=== PATIENT | female | born 1995 | race Hispanic/Latino ===

== ENCOUNTER 2018-10-10 03:27 | Emergency (ER) | payer OTHER | END 2018-10-10 03:55 | LOC: EDH 03:27 | DX: Z02.83 Encounter for blood-alcohol and blood-drug test (principal) ==

== ENCOUNTER 2021-04-17 16:46 | Observation (INO) | payer MEDICAID, OTHER ==
[~2021-04-17] VITALS: Ht 154.9 cm; Wt 68.5 kg
[2021-04-17 17:31] VITALS: BP 92/52
[2021-04-17 17:40] LABS: APPEARANCE,URINE Cloudy (CLEAR); BILIRUBIN,URINE Negative (NEGATIVE); COLOR,URINE Yellow (YELLOW); GLUCOSE, URINE (UA) Negative (NEGATIVE); KETONES,URINE Negative (NEGATIVE); LEUKOCYTE ESTERASE ,URINE Large (NEGATIVE); NITRATE,URINE Negative (NEGATIVE); OCCULT BLOOD,URINE Moderate (NEGATIVE); PH,URINE 6.5 (5.0-8.0); PROTEIN,URINE Negative (NEGATIVE)
[2021-04-17 18:21] LABS: BACTERIA,URINE Few /HPF (None Seen); SQUAMOUS EPITHELIAL CELL,UR Few /HPF (0-2)
[2021-04-17] MEDS: LACTATED RINGERS 1000ML 1,000 ML IV SCH ×2 (18:36→18:58)
[2021-04-20] MEDS ORDERED: DOCU-116 PO (16:00)
[2021-04-20] MEDS ORDERED: IBUP-2077 PO (16:01)
[2021-04-20] MEDS ORDERED: ACET1TAB25 PO (16:02)
== END 2021-04-17 20:08 | disposition home or self-care (01) ==
LOC: LDH 16:46
PROVIDERS: ADMIT Obstetrics & Gynecology; ATTEND Obstetrics & Gynecology
DX: O36.8130 Decreased fetal movements, third trimester, not applicable or unspecified (principal); Z3A.39 39 weeks gestation of pregnancy
CPT/HCPCS: 59025; 76805; 76819; 81001; 87088; 96360; 96361; G0378 ×2; G0379

== ENCOUNTER 2021-04-18 18:01 | Inpatient (IN) | payer OTHER ==
[~2021-04-18] VITALS: Ht 154.9 cm; Wt 69.9 kg
[2021-04-18 18:55] LABS: APPEARANCE,URINE CLOUDY (CLEAR); BILIRUBIN,URINE SMALL (NEGATIVE); COLOR,URINE YELLOW (YELLOW); GLUCOSE, URINE (UA) NEGATIVE (NEGATIVE); KETONES,URINE 5 mg/dL (NEGATIVE); LEUKOCYTE ESTERASE ,URINE LARGE (NEGATIVE); NITRATE,URINE NEGATIVE (NEGATIVE); OCCULT BLOOD,URINE NEGATIVE (NEGATIVE); PH,URINE 6.5 (5.0-8.0); PROTEIN,URINE TRACE mg/dL (NEGATIVE)
[2021-04-18 19:09] LABS: BACTERIA,URINE Moderate /HPF (None Seen); MUCUS,URINE Rare LPF (None Seen); SQUAMOUS EPITHELIAL CELL,UR Moderate /HPF (0-2)
[2021-04-18 20:13] LABS: HEMATOCRIT 30.4 % (36-48); MEAN CORPUSCULAR HEMOGLOBIN 28.9 pg (27.0-33.0); MEAN CORPUSCULAR HGB CONC 33.2 g/dL (32.0-36.0); MEAN CORPUSCULAR VOLUME 87.1 fL (79-99); RED BLOOD CELL COUNT(AUTO) 3.49 MIL/uL (4.00-5.50); RED CELL DISTRIBUTION WIDTH 14.5 % (11.0-15.5); WHITE BLOOD COUNT (AUTO) 8.5 K/uL (4.8-10.8)
[2021-04-18] MEDS ORDERED: MISOPROSTOL 25 MCG TABLET ONE (20:25)
[2021-04-18] MEDS: LACTATED RINGERS 1000ML 1,000 ML IV PRN (20:29)
[2021-04-18] MEDS ORDERED: MISOPROSTOL 100 MCG TABLET VG SCH (20:30)
[2021-04-18] MEDS ORDERED: MISOPROSTOL 25 MCG TABLET VG SCH (21:00)
[2021-04-18 21:49] VITALS: BP 124/85
[2021-04-18] MEDS ORDERED: AMPICILLIN 2GM+NS 100ML 100 ML IV SCH (23:00)
[2021-04-19] MEDS: AMPICILLIN 1GM+NS 50ML 50 ML IV SCH ×3 (04:33→12:56)
[2021-04-19] MEDS: LACTATED RINGERS 1000ML 1,000 ML IV PRN ×2 (04:33→07:15)
[2021-04-19] MEDS ORDERED: LACTATED RINGERS 500 ML 500 ML IV PRN (07:00)
[2021-04-19] MEDS ORDERED: ROPIVACAINE 0.2% 100ML VIAL 100 ML EP PRN (07:00)
[2021-04-19] MEDS ORDERED: EPHEDRINE SULFATE 50 MG/ML AMPULE IVP PRN (07:00)
[2021-04-19] MEDS ORDERED: NALOXONE HCL 0.4 MG/1 ML ML IV PRN (07:00)
[2021-04-19] MEDS ORDERED: OXYTOCIN-LR 20 UNITS/1000 ML 1,000 ML IV SCH ×2 (07:30→16:30)
[2021-04-19] MEDS: LACTATED RINGERS 1000ML 1,000 ML IV SCH (08:39)
[2021-04-19] MEDS ORDERED: ONDANSETRON 4MG INJ ONE (11:38)
[2021-04-19] MEDS ORDERED: METHYLERGONOVINE MALEATE 0.2 MG/1 ML ML ONE (15:26)
[2021-04-19] MEDS ORDERED: WITCH HAZEL 1 PAD TP PRN (16:30)
[2021-04-19] MEDS ORDERED: ACETAMINOPHEN 325 MG TAB PO PRN (16:30)
[2021-04-19] MEDS ORDERED: LANOLIN 30GM OINTMENT TP PRN (16:30)
[2021-04-19] MEDS ORDERED: DIPH,PERTUSS(ACELL),TET VAC/PF 0.5 ML VIAL IM PRN (16:30)
[2021-04-19] MEDS ORDERED: BENZOCAINE/LANOLIN/ALOE VERA 60 ML AEROSOL TP PRN (16:30)
[2021-04-19] MEDS ORDERED: MEASLES/MUMPS/RUBELLA VACCINE, LIVE 0.5 ML/VIAL SQ PRN (16:30)
[2021-04-19] MEDS ORDERED: ACETAMINOPHEN WITH CODEINE 1 TAB TAB PO PRN (16:30)
[2021-04-19] MEDS: IBUPROFEN 600 MG TABLET PO PRN (19:37)
[2021-04-19 20:30] VITALS: BP 120/71
[2021-04-19] MEDS: DOCUSATE SODIUM 100 MG CAP PO SCH (21:10)
[2021-04-19 23:15] VITALS: BP 125/86
[2021-04-20] MEDS: LACTATED RINGERS 1000ML 1,000 ML IV SCH (02:30)
[2021-04-20 02:58] VITALS: BP 104/61
[2021-04-20] MEDS: IBUPROFEN 600 MG TABLET PO PRN ×2 (03:27→09:10)
[2021-04-20 06:42] LABS: HEMATOCRIT 26.7 % (36-48); MEAN CORPUSCULAR HGB CONC 33.7 g/dL (32.0-36.0); MEAN CORPUSCULAR VOLUME 86.1 fL (79-99); RED BLOOD CELL COUNT(AUTO) 3.1 MIL/uL (4.00-5.50); RED CELL DISTRIBUTION WIDTH 14.5 % (11.0-15.5); WHITE BLOOD COUNT (AUTO) 13.2 K/uL (4.8-10.8)
[2021-04-20 07:16] VITALS: BP 127/82
[2021-04-20 07:40] LABS: HEPATITIS Bs ANTIGEN SCREEN P Negative (Negative)
[2021-04-20] MEDS: DOCUSATE SODIUM 100 MG CAP PO SCH (09:08)
[2021-04-20 11:34] VITALS: BP 94/54
[2021-04-20] MEDS ORDERED: DOCU-116 PO ×2 (16:00)
[2021-04-20] MEDS ORDERED: IBUP-2077 PO ×2 (16:01)
[2021-04-20] MEDS ORDERED: ACET1TAB25 PO ×2 (16:02)
== END 2021-04-20 15:20 | disposition home or self-care (01) | DRG 807 ==
LOC: EDH 18:01 → LDH 18:10 → WSH 04-19 20:25
PROVIDERS: ADMIT Obstetrics & Gynecology; ATTEND Obstetrics & Gynecology
PROC: 10E0XZZ Delivery of Products of Conception, External Approach (ICD-10-PCS; principal; 2021-04-19)
PROC: 0KQM0ZZ Repair Perineum Muscle, Open Approach (ICD-10-PCS; 2021-04-19)
PROC: 3E033VJ Introduction of Other Hormone into Peripheral Vein, Percutaneous Approach (ICD-10-PCS; 2021-04-19)
PROC: 3E0P7GC Introduction of Other Therapeutic Substance into Female Reproductive, Via Natural or Artificial Opening (ICD-10-PCS; 2021-04-19)
PROC: 10907ZC Drainage of Amniotic Fluid, Therapeutic from Products of Conception, Via Natural or Artificial Opening (ICD-10-PCS; 2021-04-19)
PROC: 3E0R3BZ Introduction of Anesthetic Agent into Spinal Canal, Percutaneous Approach (ICD-10-PCS; 2021-04-19)
PROC: 00HU33Z Insertion of Infusion Device into Spinal Canal, Percutaneous Approach (ICD-10-PCS; 2021-04-19)
DX: O70.1 Second degree perineal laceration during delivery (principal); Z37.0 Single live birth; Z3A.39 39 weeks gestation of pregnancy
CPT/HCPCS: 36415; 81001; 85027; 86592; 86850; 86900; 86901; 87340; A4314; A4351; G0378; J0290; J2210; J2405; J2590; J2795; J7120

== ENCOUNTER 2022-12-06 11:26 | Emergency (ER) | payer MEDICAID, OTHER ==
[~2022-12-06] VITALS: Ht 160 cm; Wt 63.5 kg
[~2022-12-06 11:26] MED LIST: ACET-2079 PO; DOCU-116 PO; IBUP-2077 PO
[2022-12-06 11:47] LABS: BILIRUBIN,URINE NEGATIVE (NEGATIVE); COLOR,URINE LIGHT-YELLOW (YELLOW); GLUCOSE, URINE (UA) NEGATIVE (NEGATIVE); KETONES,URINE NEGATIVE (NEGATIVE); LEUKOCYTE ESTERASE ,URINE 500 Leu/uL (NEGATIVE); NITRATE,URINE NEGATIVE (NEGATIVE); OCCULT BLOOD,URINE NEGATIVE (NEGATIVE); PROTEIN,URINE NEGATIVE (NEGATIVE); UROBILINOGEN,URINE 0.2 mg/dL (0.2-1.0)
[2022-12-06 11:52] LABS: APPEARANCE,URINE HAZY (CLEAR)
[2022-12-06 11:55] LABS: BACTERIA,URINE RARE /HPF (None Seen); MUCUS,URINE RARE LPF (None Seen); RBC,URINE 0-1 /HPF (0-1); SQUAMOUS EPITHELIAL CELL,UR MANY /HPF (0-2); WBC,URINE 51-100 /HPF (0-1)
[2022-12-06 11:56] LABS: HCG,QUALITATIVE URINE NEGATIVE (NEGATIVE)
[2022-12-06 11:56] LABS: BASOPHILS % (AUTO) 0.2 % (0.0-5.0); EOSINOPHILS % (AUTO) 1.6 % (0.0-8.0); LYMPHOCYTES % (AUTO) 31.5 % (21.0-51.0); MEAN CORPUSCULAR HEMOGLOBIN 26.5 pg (27.0-33.0); MEAN CORPUSCULAR HGB CONC 32.2 g/dL (32.0-36.0); MEAN CORPUSCULAR VOLUME 82.2 fL (79-99); MONOCYTES % (AUTO) 7.2 % (3.0-13.0); NEUTROPHILS % (AUTO) 59.3 % (40.0-77.0); PLATELET COUNT (AUTO) 329 K/uL (130-400); RED BLOOD CELL COUNT(AUTO) 4.38 MIL/uL (4.00-5.50); RED CELL DISTRIBUTION WIDTH 15.3 % (11.0-15.5); WHITE BLOOD COUNT (AUTO) 8.9 K/uL (4.8-10.8)
[2022-12-06 12:09] LABS: AMPHET/METH SCREEN,URINE NEGATIVE (NEGATIVE); BARBITURATE SCREEN, URINE NEGATIVE (NEGATIVE); BENZODIAZEPINES SCREEN,URINE POSITIVE (NEGATIVE); CANNABINOID SCREEN,URINE NEGATIVE (NEGATIVE); COCAINE SCREEN,URINE NEGATIVE (NEGATIVE); OPIATE SCREEN,URINE NEGATIVE (NEGATIVE); PHENCYCLIDINE SCREEN,URINE NEGATIVE (NEGATIVE)
[2022-12-06 12:15] LABS: CARBON DIOXIDE 27 mmol/L (21-32); CHLORIDE 100 mmol/L (101-111); CREATININE 0.7 mg/dL (0.5-1.5); GLOMERULAR FILTR. RATE CALC 121 mL/min (>90); GLUCOSE,RANDOM 98 mg/dL (70-105); POTASSIUM 3.7 mmol/L (3.5-5.1); SODIUM SERUM 136 mmol/L (136-145); UREA NITROGEN, BLOOD 9 mg/dL (7-18)
[2022-12-06 12:19] LABS: ALANINE AMINOTRANSFERASE 15 U/L (12-78); ALBUMIN 3.9 g/dL (3.5-5.0); ASPARTATE AMINOTRANSFERASE 13 U/L (10-37); TOTAL PROTEIN, SERUM 7.9 g/dL (6.0-8.3)
[2022-12-06 12:41] LABS: ACETAMINOPHEN < 1 mcg/mL (10-30); SALICYLATE < 2.8 mg/dL (2.8-20.0)
[2022-12-06 14:30] VITALS: BP 118/74
[2022-12-06] MEDS ORDERED: MACR100 PO (17:11)
[2022-12-06] MEDS ORDERED: SULF1TAB42 PO (17:11)
[2022-12-06] MEDS ORDERED: PHEN-847 PO (17:11)
[2022-12-06] MEDS ORDERED: PHENAZOPYRIDINE HCL 200 MG TABLET PO ONE (17:30)
[2022-12-06] MEDS ORDERED: CEFTRIAXONE 1G VIAL IVPB ONE (17:30)
== END 2022-12-06 18:30 | disposition home or self-care (01) ==
LOC: EDH 11:26
DX: R06.02 Shortness of breath (principal); F43.21 Adjustment disorder with depressed mood; N30.00 Acute cystitis without hematuria; Z20.822 Contact with and (suspected) exposure to COVID-19; Z79.899 Other long term (current) drug therapy
CPT/HCPCS: 99284; 96365; 87635; 80053; 80305; 85025; 87077; 87088; 87186; 87797; 87486; 81025; 36415; 93005; 81001; C9803; J0696; G0481

== ENCOUNTER 2024-06-17 19:14 | Emergency (ER) | payer BC ==
[~2024-06-17] VITALS: Ht 157.5 cm; Wt 55.8 kg
[~2024-06-17 19:14] MED LIST changes: +MACR100 PO; +PHEN-847 PO
--- NOTE | 2024-06-17 19:18 | NUR ---
UA CUP PROVIDED
--- NOTE | 2024-06-17 19:34 | ERN ---
ED Note History of Present Illness Stated Complaint: BACK AND PELVIC PAIN Chief Complaint: Multiple Complaints Time Seen by MD: 19:18 Dictation: PATIENT IS A 28-YEAR-OLD FEMALE HERE WITH TWO COMPLAINTS 1ST COMPLAINT IS LOW BACK PAIN THAT DOES NOT RADIATE SHE HAS HAD FOR FIVE DAYS. NO FEVER NO CHILLS NO NAUSEA VOMITING. DENIES ANY HISTORY OF PRIOR INJURIES OR SURGERIES. SECOND COMPLAINT IS SHE IS HAVING PELVIC PAIN SHE HAS HAD FOR 1-1/2 MONTHS. SHE DENIES VAGINAL BLEEDING NO NAUSEA VOMITING NO FEVER NO CHILLS. SHE IS A PATIENT OF DR. ROCÍO Almeida HOWEVER HAS NOT CALLED HER TO BE SEEN. Allergies: Coded Allergies: No Known Drug Allergies (Unverified Allergy, Unknown, 04/17/21) Home Meds Active Scripts Phenazopyridine HCl (Pyridium) 200 Mg Tab, 200 MG PO TIDPC, #10 TAB 0 Refills TAKE WITH FOOD TO PREVENT STOMACH UPSET. Prov:DANTE GONZALEZ MD 12/06/22 Nitrofurantoin/Nitrofuran Mac (Macrobid) 100 Mg Cap, 1 CAP PO BID for 7 Days, #14 CAP 0 Refills Prov:DANTE GONZALEZ MD 12/06/22 Reported Medications Acetaminophen with Codeine (Acetaminophen-Cod #3 Tablet) 1 Each Tablet, 1 EACH PO Q4H PRN for PAIN LEVEL 7 TO 10, #30 TAB 04/20/21 Ibuprofen (Ibuprofen 800 mg Tab) 800 Mg Tab, 800 MG PO Q8H PRN for PAIN, #60 TAB 04/20/21 Docusate Sodium (Colace) 100 Mg Capsule, 100 MG PO BID, #60 CAP 04/20/21 Past Medical History Past Medical History: No Pertinent History Surgical History: None Social History: Drugs, ETOH, Lives with family LMP: Jun 16, 2024 RN Note Reviewed/Agreed w/PFSH: Yes Review of System Dictation CONSTITUTIONAL: NEGATIVE EXCEPT FOR HPI HEAD/FACE: NEGATIVE EXCEPT FOR HPI EENT: NEGATIVE EXCEPT FOR HPI RESPIRATORY: NEGATIVE EXCEPT FOR HPI GASTROINTESTINAL/ABDOMINAL: NEGATIVE EXCEPT FOR HPI GENITOURINARY: NEGATIVE EXCEPT FOR HPI PELVIC PAIN FOR 1-1/2 MONTHS MUSCULOSKELETAL: NEGATIVE EXCEPT FOR HPI LOW BACK PAIN INTEGUMENTARY: NEGATIVE EXCEPT FOR HPI NEUROLOGICAL/PSYCH: NEGATIVE EXCEPT FOR HPI HEMATOLOGIC/LYMPHATIC: NEGATIVE EXCEPT FOR HPI ALL SYSTEMS NEGATIVE, EXCEPT NOTED ABOVE. 13 POINT REVIEW OF SYSTEMS ASSESSED AND ALL NEGATIVE EXCEPT FOR ABOVE. Initial Vital Sign VS Vital Signs Date Time Temp Pulse Resp B/P (MAP) Pulse Ox O2 Delivery O2 Flow Rate FiO2 06/17/24 19:15 97.0 102 20 124/87 100 Room Air 06/17/24 20:08 0 21 Physical Exam Dictation VITAL SIGNS REVIEWED GENERAL APPEARANCE: ALERT, ORIENTED X 3, NO ACUTE DISTRESS, WELL DEVELOPED, NOURISHED. 06/10 PAIN HEAD AND FACE: NON-TRAUMATIC. EYES: PERRL, PINK CONJUNCTIVAS, EYELID NO TRAUMA, ANTERIOR CHAMBER WITH ARCUS SENILIS. EARS: PINNAS INTACT AND NO SIGNS OF TRAUMA OR ERYTHEMA EAR CANALS CLEAR AND NO DISCHARGE TM NO ERYTHEMA NOSE: NO DISCHARGE, NO BLEEDING. OROPHARYNX: MOUTH NORMAL, TONGUE PINK, PHARYNX CLEAR,NO ERYTHEMA, TONSILS NO EXUDATES, NO ABSCESSES NOTED, MUCOUS MEMBRANE MOIST NECK: SUPPLE, NON-TENDER, NO THYROMEGALY, NO MASSES, NO JVD, NO BRUITS BREAST:DEFERRED CHEST:NO TENDERNESS, NO CREPITUS, NO PARADOXICAL MOVEMENT, NO RETRACTIONS LUNGS:CLEAR, WELL-VENTILATED, SYMMETRIC, NO RALES, NO WHEEZING, NO RHONCHI, NO STRIDOR, GOOD BREATH SOUNDS BILATERALLY HEART: REGULAR RATE, REGULAR RHYTHM, NO MURMUR, NO GALLOPS VASCULAR: NO PERIPHERAL EDEMA, ABDOMEN: SOFT, POSITIVE BOWEL SOUNDS, NONDISTENDED, NO GUARDING, NONTENDER, NO REBOUND, NO MASSES NO HEPATOMEGALY, NO SPLENOMEGALY, NO MERCEDES'S SIGN, NO HERNIAS. RECTAL: DEFERRED GENITAL: DEFERRED NEUROLOGICAL: NORMAL SPEECH, MOTOR FUNCTION INTACT, SENSORY FUNCTION INTACT MUSCULOSKELETAL: NECK NONTENDER, FULL RANGE OF MOTION, BACK NONTENDER, FULL RANGE OF MOTION, EXTREMITIES: NONTENDER, FULL RANGE OF MOTION SKIN: COLOR PINK, DRY, NO TURGOR, NO RASH, NO LACERATIONS, NO ABRASIONS, NO CONTUSIONS. LYMPHATIC: DEFERRED Results (Laboratory/Radiology) Laboratory/Radiology Laboratory Tests Test 06/17/24 20:25 06/17/24 21:05 White Blood Count 7.8 K/uL (4.8-10.8) Red Blood Count 4.20 MIL/uL (4.00-5.50) Hemoglobin 11.8 g/dL (12.0-16.0) L Hematocrit 35.4 % (36-48) L Mean Corpuscular Volume 84.3 fL (79-99) Mean Corpuscular Hemoglobin 28.1 pg (27.0-33.0) Mean Corpuscular Hemoglobin Concent 33.3 g/dL (32.0-36.0) Red Cell Distribution Width 14.0 % (11.0-15.5) Platelet Count 381 K/uL (130-400) Mean Platelet Volume 9.6 fL (7.5-10.5) Immature Granulocyte % (Auto) 0.1 % (0-1) Neutrophils (%) (Auto) 63.7 % (40.0-77.0) Lymphocytes (%) (Auto) 28.9 % (21.0-51.0) Monocytes (%) (Auto) 6.5 % (3.0-13.0) Eosinophils (%) (Auto) 0.5 % (0.0-8.0) Basophils (%) (Auto) 0.3 % (0.0-5.0) Neutrophils # (Auto) 4.9 K/uL (1.8-7.7) Lymphocytes # (Auto) 2.2 K/uL (1.0-4.8) Monocytes # (Auto) 0.5 K/uL (0.1-1.0) Eosinophils # (Auto) 0.04 K/uL (0.00-0.70) Basophils # (Auto) 0.02 K/uL (0.00-0.20) Absolute Immature Granulocyte (auto 0.01 K/uL (0-1) Nucleated Red Blood Cells 0.0 % (0.0-0.19) Sodium Level 140 mmol/L (136-145) Potassium Level 4.1 mmol/L (3.5-5.1) Chloride Level 104 mmol/L (101-111) Carbon Dioxide Level 30 mmol/L (21-32) Blood Urea Nitrogen 7 mg/dL (7-18) Creatinine 0.5 mg/dL (0.5-1.0) Glomerular Filtration Rate Calc 130 mL/min (>90) Random Glucose 97 mg/dL (70-105) Total Calcium 9.2 mg/dL (8.5-10.1) Serum Test, Qualitative NEGATIVE (NEGATIVE) Urine Color COLORLESS (YELLOW) Urine Appearance CLOUDY (CLEAR) H Urine pH 5.5 (5.0-8.0) Urine Specific [place] 1.010 (1.001-1.031) Urine Protein NEGATIVE mg/dL (NEGATIVE) Urine Glucose (UA) NEGATIVE mg/dL (NEGATIVE) Urine Ketones NEGATIVE mg/dL (NEGATIVE) Urine Occult Blood LARGE (NEGATIVE) H Urine Nitrate NEGATIVE (NEGATIVE) Urine Bilirubin NEGATIVE mg/dL (NEGATIVE) Urine Urobilinogen 0.2 mg/dL (0.2-1.0) Urine Leukocyte Esterase NEGATIVE Akira/uL Labs Reviewed?: Yes ED Course ED Course Orders Procedure Category Date Status Time Testing, LAB 06/17/24 Complete Serum Hcg 19:18 Urinalysis Profile LAB 06/17/24 In Process 19:18 Cbc With Differential LAB 06/17/24 Complete 19:18 Basic Metabolic Panel LAB 06/17/24 Complete 19:18 Acetaminophen 500mg PHA 06/17/24 Complete Tab (Tylenol 500mg T 20:00 Current Medications Medications (Trade) Dose Ordered Sig/Ju Route PRN Reason Start Time Stop Time Status Last Admin Dose Admin Acetaminophen (TYLenol 500MG TAB) 1,000 mg ONCE ONCE PO 06/17/24 20:00 06/17/24 20:01 DC 06/17/24 21:29 Vital Signs Date Time Temp Pulse Resp B/P (MAP) Pulse Ox O2 Delivery O2 Flow Rate FiO2 06/17/24 20:08 97.0 102 20 124/87 100 Room Air* 0 21 06/17/24 19:15 97.0 102 20 124/87 100 Room Air 2135/patient will be discharged home with all labs negative no imaging indicated this time. We will refer her to Dr. Rocío almeida for her chronic pelvic pain. No and no infection Medical Decision Making MDM Medical discharge making based on labs urinalysis. All labs negative Patient has a hematuria only on urine No She will be given pain management and told to follow up with Dr. Rocío almeida, her senior ui designer in the next 2-3 days DX & DISP Disposition: Discharge Departure Impression: Primary Impression: Chronic pelvic pain in female Additional Impressions: Acute low back pain, Hematuria Condition: Stable Scripts Ibuprofen (Ibuprofen 800 mg Tab) 800 Mg Tab 800 MG PO Q8H PRN for fever or pain, #30 TAB 0 Refills Prov: RALF VILLARREAL FEATHEREDGE MACHINE OPERATOR 06/17/24 Additional Instructions: Follow-up with primary care provider in 1 to 2 days. Take medications as directed here in the emergency room. Okay to continue home medications unless otherwise discussed during your visit in the emergency room today. Return to your nearest emergency room if symptoms worsen or if there is no improvement. Call 911 if you need immediate assistance. Take Tylenol or Motrin [id number] as needed and if no contraindications are present. Increase oral hydration. A wound culture or urine culture was ordered here in the emergency room department please follow-up with primary care provider and advise them to get repeat ports from our facility. If you had any Rudolph wrap/splints that were applied here, please do not remove them until you see your primary care or specialty. Take ibuprofen as needed for pain. Follow up with your senior ui designer doctor in the next 2-3 days for your chronic pelvic pain. Referrals: IRIS ALFORD MD (PCP) Time of Disposition: 21:41 I have reviewed the case, and I agree with, Diagnosis and Plan RALF VILLARREAL NP Jun 17, 2024 19:34
--- NOTE | 2024-06-17 19:47 | NUR ---
PT HAS NOT COLLECTED A URINE AT THIS TIME
[2024-06-17 20:08] VITALS: BP 124/87; PULSE 102; RESP 20; TEMP 97; O2SAT 100
[2024-06-17 20:37] LABS: BASOPHILS # (AUTO) 0.02 K/uL (0.00-0.20); BASOPHILS % (AUTO) 0.3 % (0.0-5.0); EOSINOPHILS # (AUTO) 0.04 K/uL (0.00-0.70); EOSINOPHILS % (AUTO) 0.5 % (0.0-8.0); HEMATOCRIT 35.4 % (36-48); IMMATURE GRANULOCYTE ABSOLUTE 0.01 K/uL (0-1); LYMPHOCYTES # (AUTO) 2.2 K/uL (1.0-4.8); LYMPHOCYTES % (AUTO) 28.9 % (21.0-51.0); MEAN CORPUSCULAR HEMOGLOBIN 28.1 pg (27.0-33.0); MEAN CORPUSCULAR HGB CONC 33.3 g/dL (32.0-36.0); MEAN CORPUSCULAR VOLUME 84.3 fL (79-99); MONOCYTES # (AUTO) 0.5 K/uL (0.1-1.0); MONOCYTES % (AUTO) 6.5 % (3.0-13.0); NEUTROPHILS # (AUTO) 4.9 K/uL (1.8-7.7); NEUTROPHILS % (AUTO) 63.7 % (40.0-77.0); PLATELET COUNT (AUTO) 381 K/uL (130-400); WHITE BLOOD COUNT (AUTO) 7.8 K/uL (4.8-10.8)
[2024-06-17 20:49] LABS: CREATININE 0.5 mg/dL (0.5-1.0); POTASSIUM 4.1 mmol/L (3.5-5.1)
[2024-06-17] MEDS: acetaMINOPHEN 500 MG TABLET PO ONE (21:29)
[2024-06-17 21:33] LABS: APPEARANCE,URINE CLOUDY (CLEAR); BILIRUBIN,URINE NEGATIVE (NEGATIVE); COLOR,URINE COLORLESS (YELLOW); GLUCOSE, URINE (UA) NEGATIVE (NEGATIVE); KETONES,URINE NEGATIVE (NEGATIVE); LEUKOCYTE ESTERASE ,URINE NEGATIVE Leu/uL (NEGATIVE); NITRATE,URINE NEGATIVE (NEGATIVE); OCCULT BLOOD,URINE LARGE (NEGATIVE); PH,URINE 5.5 (5.0-8.0); PROTEIN,URINE NEGATIVE (NEGATIVE); UROBILINOGEN,URINE 0.2 mg/dL (0.2-1.0)
[2024-06-17 21:37] LABS: ADD UA MICROSCOPIC YES
[2024-06-17] MEDS ORDERED: IBUP-2077 PO (21:41)
[2024-06-17 21:45] LABS: RBC,URINE TNTC /HPF (0-1); UNCLASSIFIED CRYSTAL 2 /HPF (None Seen); WBC,URINE 51-100 /HPF (0-1)
== END 2024-06-17 21:57 | disposition home or self-care (01) ==
LOC: EDH 19:14
DX: G89.29 Other chronic pain (principal); R10.2 Pelvic and perineal pain; M54.50 Low back pain, unspecified; R31.9 Hematuria, unspecified
CPT/HCPCS: 36415; 80048; 81001; 84703; 85025; 87086; 99283